=== PATIENT | female | born 2000 | race Caucasian/White ===

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

== ENCOUNTER 2025-05-17 09:38 | Emergency (ER) | payer OTHER, SELFPAY ==
[2025-05-17 09:40] VITALS: BP 154/99; PULSE 99; RESP 18; TEMP 36.6; O2SAT 100; BMI 28.8
--- NOTE | 2025-05-17 10:30 | PC.NURSE ---
Pt coming in reporting 1 day of nausea, pt reports this normally happens with her after she gets her period, LMP was last week. [place] and is wondering if she may be dehydrated. Pt also reporting MACIAS that is in multiple areas, history of MACIAS normally Motrin does help, she reports taking some this morning with no relief. Pt denies V, vision changes, SOB/CP. reporting intermit umbilical pain. Pt also reporting liquid diarrhea 3 episodes noted today. Denies color/odor. Awaiting provider at this time
--- NOTE | 2025-05-17 10:37 | ED.NAVMDI ---
HPI - Nausea/Vomiting/Diarrhea General Chief complaint: Nausea/Vomiting/Diarrhea Stated complaint: nausea diarrhea dizzy Time Seen by Provider: 05/17/25 10:17 Source: patient and RN notes reviewed Mode of arrival: ambulatory Limitations: no limitations History of Present Illness ED Provider: Carolina Marroquin PA-C HPI Narrative: This is a 24-year-old female, with no known medical problems, who presents emergency department complaints of nausea, headache, diarrhea, hot flashes and chills. Patient reports that over the weekend she was at the beach, she did have a [employer] meal, as well as soup at [employer]. She states that she was previously having nausea, which she typically gets a week after her period. She states that she noticed she was getting a headache while she was at the beach, states that she was nauseous, only 8 several bites of her [employer] meal. She states that later on yesterday she did have soup, which about a 1/2 hour to an hour later developed worsening headache, worsening nausea, cramping, and diarrhea. Patient states that she has had several episodes of diarrhea last night, as well as 3-4 episodes of diarrhea this morning. She took Tylenol which provided her with minimal relief of her headache. She states that her nausea has improved, and cramping has improved. No sick contacts. Last menstrual period was last week. No other complaints or concerns at this time. MD elicited complaint: nausea and diarrhea Associated abdominal pain: Yes Location of pain: none Quality: cramping Exacerbating factors: none Relieving factors: none Related Data Previous Rx's ?Medication ?Instructions ?Recorded ondansetron 4 mg disintegrating 4 mg PO Q6H PRN nausea and 05/17/25 tablet vomiting #14 tabs Allergies Allergy/AdvReac Type Severity Reaction Status Date / Time No Known Allergies Allergy Verified 05/17/25 09:42 Review of Systems Review of Systems: Yes all other systems are reviewed and are negative Constitutional: Constitutional: Reports as per H[facility] Past Medical History Medical History No known health problems Social History Social History Household Members: Family Housing: House Do you presently have visiting nurse or other home services: No Alcohol intake: never Second Hand Smoke Exposure: No Advance Directives: No Advance Directives Information Provided: Yes service: No Sexual orientation: did not discuss Physical Exam Vital Signs: Vital Signs: Last Vital Signs Temp 97.9 F 05/17/25 09:40 Pulse 65 05/17/25 12:25 Resp 18 05/17/25 12:25 BP 124/77 05/17/25 12:25 Pulse Ox 100 05/17/25 12:25 O2 Del Method Room Air 05/17/25 12:25 BMI result Body Mass Index 28.8 Const: General: cooperative, comfortable and no acute distress Orientation/consciousness: patient oriented x3 Limitations: no limitations HEENT: Head: Yes normal to inspection, Yes normocephalic and Yes atraumatic Ears: hearing grossly normal bilaterally General nose exam: Normal external nose present Face and sinus: Yes normal facial exam Mouth: Normal oral and palatal mucosa present, oropharynx normal and moist mucous membranes Throat: Yes posterior oropharynx normal Eyes: General: appearance normal, both eyes and all related structures Eyelids: Yes eyelids normal Conjunctivae: conjunctivae normal Sclerae: sclerae normal Pupils: Equal, round and reactive pupils present EOM: EOMs intact bilaterally Neck: Neck: Yes normal visual inspection, Yes full ROM and Yes no lymphadenopathy Lymphatic: no lymphadenopathy noted Chest: Chest palpation & inspection: normal inspection of the chest Resp: Effort & Inspection: normal respiratory effort and able to speak in complete sentences Auscultation: clear to auscultation bilaterally, no crackles, no rales, no rhonchi and no wheezes Cardio: Rate: regular rate Rhythm: regular rhythm Heart sounds: S1 normal heart sound present and S2 normal heart sound present GI: Other: Abdomen is soft, nontender, nondistended Inspection: Yes normal to inspection Skin: General skin exam: no rashes or lesions noted Trauma: no lacerations or abrasions Wounds: no wounds Neuro: General: patient oriented x3 and moves all extremities Cranial nerves: Yes Equal, round and reactive pupils present Extrem: General: Yes normal to inspection Right upper extremity: normal to inspection Left upper extremity: normal to inspection Right lower extremity: normal to inspection Left lower extremity: normal to inspection Medications Administered Discontinued Medications Generic Name Dose Route Start Last Admin Trade Name Freq PRN Reason Stop Dose Admin Lactated Ringer's 500 mls @ 999 mls/hr 05/17/25 10:56 05/17/25 12:39 Lr IV 05/17/25 11:26 Infused .Q31M ONE Infusion Lactated Ringer's 500 mls @ 999 mls/hr 05/17/25 11:39 05/17/25 12:39 Lr IV 05/17/25 12:09 999 mls/hr .Q31M ONE Administration Ondansetron HCl 4 mg 05/17/25 10:56 05/17/25 11:09 Ondansetron Hcl 4 Mg/2 Ml Vial IVPUSH 05/17/25 10:57 4 mg ONCE ONE Administration Medical Decision Making Medical Decision Making [facility] Narrative: This is a 24-year-old female who presents emergency department with complaints of nausea, headache, diarrhea, hot flashes and chills. On arrival, blood pressure mildly elevated 154/99, all other vital signs within normal limits. Abdomen is soft with mild tenderness in the suprapubic region. No rebound or guarding. Patient has spent multiple days at the beach, and ate out at restaurants. Symptoms likely secondary to gastroenteritis/gastritis, however given symptoms, will obtain labs, medicate with IV fluids, IV Zofran. We will continue to monitor. 1243 - labs returned, she has no leukocytosis, stable H&H, chemistry revealing no significant electrolyte derangement. Total bili slightly elevated at 1.2, AST slightly elevated at 53. Urine does show high specific gravity, trace protein, does not appear to be infectious. U preg negative. Viral swabs negative. 1305 - patient re-evaluated, feeling much better after receiving IV antiemetic, and IV fluids. Discussed overall workup with patient. Advised to follow-up with primary care in the area. Given strict return precautions. She does not want to stay to have her fluids completed. Patient stable for discharge. Differential Diagnosis Differential Diagnoses: The differential diagnosis associated with the presentation includes See above Admission/Observation Consideration of admission/observation: Escalation of care including admission/observation considered Lab Data [facility] Lab Attestation statement: I reviewed the patient's lab results. See MDM and course 05/17/25 11:08 05/17/25 11:08 Labs: Lab Results 05/17/25 Range/Units 11:08 WBC 9.8 (4.8-10.8) X10*3/uL RBC 4.75 (4.20-5.50) X10*6/uL Hgb 14.5 (12.0-16.0) g/dl Hct 41.6 (37.0-47.0) % MCV 87.6 (80.0-98.0) fL MCH 30.5 (27.0-33.0) pg MCHC 34.9 (31.0-35.0) g/dl RDW 13.2 (11.0-16.0) % Plt Count 381 (160-400) X10*3/uL MPV 9.8 (9.4-12.3) fL Immature Gran % (Auto) 0.8 H (0.0-0.4) % Neut % (Auto) 80.3 H (45-73) % Lymph % (Auto) 13.3 L (20-40) % [place] % (Auto) 5.0 (2-11) % Eos % (Auto) 0.1 (0-4) % Baso % (Auto) 0.5 (0-2) % Lymph # (Auto) 1.3 (1.2-4.9) X10*3/uL [place] # (Auto) 0.5 (0.1-1.2) X10*3/uL Eos # (Auto) 0.0 (0.0-0.4) X10*3/uL Baso # (Auto) 0.1 (0.0-0.2) X10*3/uL Abs Immat Gran (auto) 0.08 H (0.00-0.03) X10*3/uL Absolute Neuts (auto) 7.9 (2.0-8.3) x10*3/uL Absolute Nucleated RBC 0.000 (0.0-0.012) X10*3/uL Nucleated RBC % (auto) 0.0 (0.0-0.2) /100WBC Sodium 140 (135-145) mmol/L Potassium 3.6 (3.3-5.1) mmol/L Chloride 108 (96-108) mmol/L Carbon Dioxide 22 (22-29) mmol/L Anion Gap 14 (12-20) BUN 7 L (9-16) mg/dL Creatinine 0.71 (0.5-1.4) mg/dL Estim Creat Clear Calc 124.0 Estimated GFR > 60 Random Glucose 100 (60-115) mg/dL Calcium 9.1 (8.4-10.2) mg/dL Magnesium 2.1 (1.6-2.6) mg/dL Total Bilirubin 1.2 H (0.0-1.0) mg/dL AST 53 H (5-31) U/L ALT 16 (0-31) U/L Alkaline Phosphatase 62 (39-117) U/L Total Protein 7.2 (6.5-8.0) g/dL Albumin 4.7 (3.5-5.0) g/dL Lipase 10 (8-78) U/L Urine Color Yellow Urine Appearance Clear Urine pH 6.5 (5.0-9.0) Ur Specific [place] >= 1.030 H (1.005-1.025) Urine Protein Trace (Neg-Trace) mg/dL Urine Glucose (UA) Negative (Negative) mg/dL Urine Ketones 80 (Negative) mg/dL Urine Blood Negative (Negative) Urine Nitrite Negative (Negative) Ur Leukocyte Esterase Negative (Negative) Urine RBC 0-2 (0-2) /HPF Urine WBC 0-5 (0-5) /HPF Ur Squamous Epith Cells 3-5 (0-2) /HPF Urine Bacteria None Seen (None Seen) Hyaline Casts 0-2 (0-2) /LPF Urine Test NEGATIVE (NEGATIVE) Influenza Type A (PCR) NEGATIVE (Negative) Influenza Type B (PCR) NEGATIVE (Negative) RSV RNA Qual (PCR) NEGATIVE (Negative) SARS-CoV-2 RNA (RT-PCR) NEGATIVE (Negative) Radiology Impression Discussion of test interpretation with radiology: I have reviewed the radiologist's reading. Discharge Plan Discharge Clinical Impression: Diarrhea Patient Disposition: Home, Self-Care Instructions: Acute Diarrhea (ED), Nutrition Tips for Relief of Diarrhea (ED) Additional Instructions: You were seen in the emergency department today. Your overall workup today was reassuring. You do have a slight elevation in your total bilirubin and liver enzymes are slightly elevated - this may be attributed to a virus. Stick to a very bland diet over the next several days. Sticking to a diet that consists of bananas, rice, applesauce, toast can help bind to the stool. Small meals throughout the day can also help with your symptoms. Drink plenty of fluids, especially those with electrolytes. This may take several days for your symptoms to improve. If any new or worsening symptoms occur including but not limited to worsening pain or symptoms, please seek emergent care. Prescriptions: New ondansetron 4 mg tablet,disintegrating 4 mg PO Q6H PRN (Reason: nausea and vomiting) Qty: 14 0RF Print Language: Urdu
[2025-05-17] MEDS: Lactated Ringers 500 ML 999 ML IV ×2 (11:09→12:39)
[2025-05-17 11:16] LABS: MANUAL DIFF FLAG NO
[2025-05-17 11:21] LABS: Appearance Urine Clear; Glucose Urine UA Negative (Negative); PH 6.5 (5.0-9.0); Specific Gravity - Urine >= 1.030 (1.005-1.025)
[2025-05-17 11:23] LABS: UPreg QC Valid YES
[2025-05-17 11:26] LABS: Hematocrit 41.6 % (37.0-47.0); Hemoglobin 14.5 g/dl (12.0-16.0); Imm Gran Abs Auto 0.08 X10*3/uL (0.00-0.03); Imm Gran Pct Auto 0.8 % (0.0-0.4); Lymphocytes Absolute Auto 1.3 X10*3/uL (1.2-4.9); Mean Corpuscular HGB Conc 34.9 g/dl (31.0-35.0); Mean Corpuscular Hemoglobin 30.5 pg (27.0-33.0); Mean Corpuscular Volume 87.6 fL (80.0-98.0); NRBC Abs Auto 0.000 X10*3/uL (0.0-0.012); NRBC Pct Auto 0.0 /100WBC (0.0-0.2); Platelet Count 381 X10*3/uL (160-400); Red Blood Count 4.75 X10*6/uL (4.20-5.50); White Blood Count 9.8 X10*3/uL (4.8-10.8)
[2025-05-17 11:38] LABS: Alanine Aminotransferase 16 U/L (0-31); Albumin Level 4.7 g/dL (3.5-5.0); Alkaline Phosphatase 62 U/L (39-117); Anion Gap 14 (12-20); Aspartate Amino Transferase 53 U/L (5-31); Blood Urea Nitrogen 7 mg/dL (9-16); Calcium 9.1 mg/dL (8.4-10.2); Carbon Dioxide 22 mmol/L (22-29); Chloride 108 mmol/L (96-108); Creatinine Clr Calc Pharmacy 124.0; Estimated Glomerular Filt Rate > 60; Lipase 10 U/L (8-78); Magnesium 2.1 mg/dL (1.6-2.6); Potassium 3.6 mmol/L (3.3-5.1); Sodium 140 mmol/L (135-145); Total Protein 7.2 g/dL (6.5-8.0)
[2025-05-17 11:58] LABS: Resp Syncy Virus RNA Qual PCR NEGATIVE (Negative); SARS COV2 PCR INHOUSE NEGATIVE (Negative)
[2025-05-17 12:25] VITALS: BP 124/77; PULSE 65; RESP 18; O2SAT 100
[2025-05-17 13:12] VITALS: BP 124/77; PULSE 65; RESP 18; TEMP 37; O2SAT 100
== END 2025-05-17 13:13 | disposition home or self-care (01) ==
PROVIDERS: Emergency Provider Emergency Medicine
DX: R19.7 Diarrhea, unspecified (principal); Z03.818 Encounter for observation for suspected exposure to other biological agents ruled out
CPT/HCPCS: 36415; 80053; 81001; 81025; 83690; 83735; 85025; 87637; 96361; 96374; 99284; J2405; J7120